=== PATIENT | female | born 1980 | race Caucasian/White ===

== ENCOUNTER 2018-12-17 17:10 | Observation (INO) | payer MEDICAID ==
[2018-12-17] MEDS ORDERED: Sodium Chloride 0.9% 10 ML Syringe FLUSH PRN (17:26)
[2018-12-17] MEDS ORDERED: Sodium Chloride 0.9% 1,000 ML IV ONE (17:28)
[2018-12-17] MEDS ORDERED: Ondansetron 4 MG/2 ML SDV IVPUSH ONE (17:28)
--- NOTE | 2018-12-17 18:24 | EDM.PDOC ---
ED HPI GENERAL MEDICAL PROBLEM - General Chief Complaint: Gastrointestinal Problem Stated Complaint: high temp Time Seen by Provider: 12/17/18 17:42 Source of Information: Reports: Patient History Limitations: Reports: No Limitations - History of Present Illness INITIAL COMMENTS - FREE TEXT/NARRATIVE: Pt. presents to ER with complaints of diarrhea, vomiting, and chills that started this AM. Pt. states that she has had numerous episodes of diarrhea and vomiting today. She states that she feels quite weak. Pt. has a history of long QT and has previously had a cardiac arrest in the past. She states that she has an AICD. She denies any palpitations or chest pain. She denies any abdominal pain. No dysuria. No skin rashes. Onset: Today Onset Date: 12/17/18 Location: Reports: Generalized Associated Symptoms: Reports: Nausea/Vomiting, Other (diarrhea) - Related Data Allergies Allergy/AdvReac Type Severity Reaction Status Date / Time amoxicillin Allergy Rash Verified 12/17/18 18:42 ED ROS GENERAL - Review of Systems Review Of Systems: See Below Constitutional: Reports: No Symptoms HEENT: Reports: No Symptoms Respiratory: Reports: No Symptoms Cardiovascular: Reports: No Symptoms Endocrine: Reports: No Symptoms GI/Abdominal: Reports: Diarrhea, Vomiting : Reports: No Symptoms Musculoskeletal: Reports: No Symptoms Skin: Reports: No Symptoms Neurological: Reports: No Symptoms Psychiatric: Reports: No Symptoms Hematologic/Lymphatic: Reports: No Symptoms Immunologic: Reports: No Symptoms ED EXAM, GENERAL - Physical Exam Exam: See Below Exam Limited By: No Limitations General Appearance: Alert, WD/WN, No Apparent Distress Eye Exam: Bilateral Eye: EOMI, PERRL Throat/Mouth: Normal Inspection, Normal Lips, Normal Teeth, Normal Gums, Normal Oropharynx, Normal Voice, No Airway Compromise Head: Atraumatic, Normocephalic Neck: Normal Inspection, Supple, Non-Tender, Full Range of Motion Respiratory/Chest: No Respiratory Distress, Lungs Clear, Normal Breath Sounds, No Accessory Muscle Use, Chest Non-Tender Cardiovascular: Normal Peripheral Pulses, Regular Rate, Rhythm, No Edema, No Gallop, No JVD, No Murmur, No Rub GI/Abdominal: Normal Bowel Sounds, Soft, No Organomegaly, No Distention, No Mass , Tender (diffusely tender) (Female) Exam: Deferred Rectal (Female) Exam: Deferred Back Exam: Normal Inspection, Full Range of Motion Extremities: Normal Inspection, Normal Range of Motion, Non-Tender, No Pedal Edema, Normal Capillary Refill Neurological: Alert, Oriented, CN II-XII Intact, Normal Cognition, Normal Gait, Normal Reflexes, No Motor/Sensory Deficits Psychiatric: Normal Affect, Normal Mood Skin Exam: Warm, Dry, Intact, Normal Color, No Rash Lymphatic: No Adenopathy Course - Vital Signs Last Recorded V/S: Last Vital Signs Temp 39.1 C H 12/17/18 17:42 Pulse 99 12/17/18 17:42 Resp 24 H 12/17/18 17:42 BP 128/60 12/17/18 17:42 Pulse Ox 93 L 12/17/18 17:42 - Orders/Labs/Meds Orders: Active Orders 24 hr Category Date Time Status CULTURE BLOOD [BC] Stat Lab 12/17/18 17:51 Received CULTURE BLOOD [BC] Stat Lab 12/17/18 17:57 Received Sodium Chloride 0.9% [Saline Flush] Med 12/17/18 17:26 Active 10 ml FLUSH ASDIRECTED PRN Blood Culture x2 Reflex Set [OM.PC] Stat Oth 12/17/18 17:26 Ordered Peripheral IV Insertion Adult [OM.PC] Routine Oth 12/17/18 17:26 Ordered Medication Orders Sodium Chloride (Saline Flush) 10 ml FLUSH ASDIRECTED PRN PRN Reason: Keep Vein Open Labs: Laboratory Tests 12/17/18 12/17/18 12/17/18 Range/Units 17:27 17:51 17:51 WBC 8.4 (4.0-10.0) x10^3/uL RBC 3.88 L (4.00-5.50) x10^6/uL Hgb 11.1 L (12.0-16.0) g/dL Hct 34.1 (33.0-47.0) % MCV 87.9 (78.0-93.0) fL MCH 28.6 (26.0-32.0) pg MCHC 32.6 (32.0-36.0) g/dL RDW Coeff of Jo Ann 13.2 (10.0-15.0) % Plt Count 208 (130-400) x10^3/uL Add Manual Diff Yes Neutrophils % (Manual) 72 (50-80) % Band Neutrophils % 10 H (0-6) % Lymphocytes % (Manual) 12 L (25-50) % Monocytes % (Manual) 4 (2-11) % Metamyelocytes % 2 H (0) % Vacuolated Monocytes Rare Toxic Granulation Rare Platelet Estimate Adequate PT 10.9 (10.0-12.8) SEC INR 1.0 L (2.0-3.5) Sodium (136-145) mmol/L Potassium (3.5-5.1) mmol/L Chloride (98-107) mmol/L Carbon Dioxide (21-32) mmol/L Anion Gap (10-20) mmol/L BUN (7-18) mg/dL Creatinine (0.55-1.02) mg/dL Est Cr Clr Drug Dosing Estimated GFR (MDRD) Glucose (74-106) mg/dL Lactic Acid (0.4-2.0) mmol/L Calcium (8.5-10.1) mg/dL Corrected Calcium (8.5-10.1) mg/dL Phosphorus (2.6-4.7) mg/dL Magnesium (1.8-2.4) mg/dL Total Bilirubin (0.2-1.0) mg/dL AST (15-37) U/L ALT (14-59) U/L Alkaline Phosphatase (46-116) U/L C-Reactive Protein (<=0.9) mg/dL Total Protein (6.4-8.2) g/dL Albumin (3.4-5.0) g/dL Globulin Albumin/Globulin Ratio TSH, Ultra Sensitive (0.358-3.74) uIU/mL Urine Color Yellow (YELLOW) Urine Appearance Cloudy H (CLEAR) Urine pH 7.0 (5.0-8.0) Ur Specific Sinclair 1.025 Urine Protein >=300 H (NEGATIVE) mg/dL Urine Glucose (UA) Negative (NEGATIVE) mg/dL Urine Ketones Negative (NEGATIVE) mg/dL Urine Occult Blood Small H (NEGATIVE) Urine Nitrite Negative (NEGATIVE) Urine Bilirubin Small H (NEGATIVE) Urine Urobilinogen 0.2 (0.2) EU/dL Ur Leukocyte Esterase Negative (NEGATIVE) 12/17/18 12/17/18 Range/Units 17:51 17:51 WBC (4.0-10.0) x10^3/uL RBC (4.00-5.50) x10^6/uL Hgb (12.0-16.0) g/dL Hct (33.0-47.0) % MCV (78.0-93.0) fL MCH (26.0-32.0) pg MCHC (32.0-36.0) g/dL RDW Coeff of Jo Ann (10.0-15.0) % Plt Count (130-400) x10^3/uL Add Manual Diff Neutrophils % (Manual) (50-80) % Band Neutrophils % (0-6) % Lymphocytes % (Manual) (25-50) % Monocytes % (Manual) (2-11) % Metamyelocytes % (0) % Vacuolated Monocytes Toxic Granulation Platelet Estimate PT (10.0-12.8) SEC INR (2.0-3.5) Sodium 140 (136-145) mmol/L Potassium 3.2 L (3.5-5.1) mmol/L Chloride 102 (98-107) mmol/L Carbon Dioxide 25 (21-32) mmol/L Anion Gap 16.2 (10-20) mmol/L BUN 12 (7-18) mg/dL Creatinine 0.9 (0.55-1.02) mg/dL Est Cr Clr Drug Dosing TNP Estimated GFR (MDRD) > 60 Glucose 138 H (74-106) mg/dL Lactic Acid 2.7 H* (0.4-2.0) mmol/L Calcium 9.0 (8.5-10.1) mg/dL Corrected Calcium 9.24 (8.5-10.1) mg/dL Phosphorus 1.6 L (2.6-4.7) mg/dL Magnesium 1.2 L (1.8-2.4) mg/dL Total Bilirubin 0.9 (0.2-1.0) mg/dL AST 19 (15-37) U/L ALT 26 (14-59) U/L Alkaline Phosphatase 74 (46-116) U/L C-Reactive Protein 10.9 H (<=0.9) mg/dL Total Protein 8.1 (6.4-8.2) g/dL Albumin 3.7 (3.4-5.0) g/dL Globulin 4.4 Albumin/Globulin Ratio 0.84 TSH, Ultra Sensitive 1.407 (0.358-3.74) uIU/mL Urine Color (YELLOW) Urine Appearance (CLEAR) Urine pH (5.0-8.0) Ur Specific Sinclair Urine Protein (NEGATIVE) mg/dL Urine Glucose (UA) (NEGATIVE) mg/dL Urine Ketones (NEGATIVE) mg/dL Urine Occult Blood (NEGATIVE) Urine Nitrite (NEGATIVE) Urine Bilirubin (NEGATIVE) Urine Urobilinogen (0.2) EU/dL Ur Leukocyte Esterase (NEGATIVE) Meds: Medications Generic Name Dose Route Start Last Admin Trade Name Freq PRN Reason Stop Dose Admin Sodium Chloride 10 ml 12/17/18 17:26 Saline Flush FLUSH ASDIRECTED PRN Keep Vein Open Discontinued Medications Generic Name Dose Route Start Last Admin Trade Name Freq PRN Reason Stop Dose Admin Sodium Chloride 1,000 mls @ 1,000 mls/hr 12/17/18 17:28 12/17/18 17:40 Normal Saline IV 12/17/18 18:27 1,000 mls/hr .BOLUS ONE Administration Ondansetron HCl 4 mg 12/17/18 17:28 12/17/18 17:40 Zofran IVPUSH 12/17/18 17:29 4 mg ONETIME ONE Administration - Re-Assessments/Exams Free Text/Narrative Re-Assessment/Exam: Pt. was given a liter of normal saline, zofran 4 mg IV. Departure - Departure Time of Disposition: 19:21 Disposition: Refer to Observation Clinical Impression: Vomiting, Diarrhea, Lactic acidosis, Dehydration - Discharge Information - My Orders Last 24 Hours: My Active Orders 12/17/18 17:26 Sodium Chloride 0.9% [Saline Flush] 10 ml FLUSH ASDIRECTED PRN Blood Culture x2 Reflex Set [OM.PC] Stat Peripheral IV Insertion Adult [OM.PC] Routine 12/17/18 17:51 CULTURE BLOOD [BC] Stat 12/17/18 17:57 CULTURE BLOOD [BC] Stat - Assessment/Plan Last 24 Hours: My Active Orders 12/17/18 17:26 Sodium Chloride 0.9% [Saline Flush] 10 ml FLUSH ASDIRECTED PRN Blood Culture x2 Reflex Set [OM.PC] Stat Peripheral IV Insertion Adult [OM.PC] Routine 12/17/18 17:51 CULTURE BLOOD [BC] Stat 12/17/18 17:57 CULTURE BLOOD [BC] Stat
[2018-12-17 18:32] LABS: CHLORIDE,CL 102 mmol/L (98-107); SODIUM,NA 140 mmol/L (136-145)
[2018-12-17 18:33] LABS: ANION GAP 16.2 mmol/L (10-20)
[2018-12-17] MEDS ORDERED: Ondansetron 4 MG/2 ML SDV IVPUSH PRN (19:29)
[2018-12-17] MEDS: NS + KCl 20mEq/L 1,000 ML IV SCH (20:56)
[2018-12-18] MEDS ORDERED: Acetaminophen 500 MG Tab PO PRN (02:43)
[2018-12-18] MEDS: NS + KCl 20mEq/L 1,000 ML IV SCH (04:21)
[2018-12-18 08:01] LABS: CHLORIDE,CL 106 mmol/L (98-107); SODIUM,NA 141 mmol/L (136-145)
[2018-12-18 08:05] LABS: ANION GAP 13.8 mmol/L (10-20)
[2018-12-18] MEDS ORDERED: cefTRIAXone 1 GM Vial IVPUSH ONE (09:14)
--- NOTE | 2018-12-18 10:44 | PCM.PN ---
- General Info Date of Service: 12/18/18 Admission Dx/Problem (Free Text): 1. fever 2. nausea/vomiting 3. Lactic acidosis Subjective Update: Day 1: Pt. presents to ER with complaints of diarrhea, vomiting, and chills that started this AM. Pt. states that she has had numerous episodes of diarrhea and vomiting today. She states that she feels quite weak. Labs and urine were completed. Lactic acid was elevated. Patient was admitted observation for further monitoring of lactic acid and fever. Day 2: Pt continued to have low grade fever throughout the night with relief of aleve. Pt remained NPO though the night and she states she is finally getting her appetite back. Labs completed this am show trending back to patients baseline. Blood cultures however were called with gram neg rods. With this finding and continued low grade fever. CT scan was ordered or rule out abdominal infection, abscess, or other acute abdominal etiologies. Pt will remain NPO and monitoring fevers until the scan is complete. Functional Status: Reports: Pain Controlled, Ambulating - Review of Systems General: Reports: Fever, Weakness, Fatigue, Malaise HEENT: Reports: No Symptoms Pulmonary: Reports: No Symptoms Cardiovascular: Reports: No Symptoms Gastrointestinal: Reports: No Symptoms Genitourinary: Reports: No Symptoms Musculoskeletal: Reports: No Symptoms Skin: Reports: No Symptoms Neurological: Reports: No Symptoms Psychiatric: Reports: No Symptoms - Patient Data Vitals - Most Recent: Last Vital Signs Temp 37.3 C 12/18/18 06:00 Pulse 81 12/18/18 06:00 Resp 16 12/18/18 06:00 BP 106/48 L 12/18/18 06:00 Pulse Ox 97 12/18/18 06:00 Weight - Most Recent: 100.698 kg I&O - Last 24 Hours: Intake & Output 12/17/18 12/18/18 12/18/18 22:59 06:59 14:59 Intake Total 929 Output Total 300 Balance 629 Lab Results Last 24 Hours: Laboratory Results - last 24 hr 12/17/18 12/17/18 12/17/18 Range/Units 17:27 17:51 17:51 WBC 8.4 (4.0-10.0) x10^3/uL RBC 3.88 L (4.00-5.50) x10^6/uL Hgb 11.1 L (12.0-16.0) g/dL Hct 34.1 (33.0-47.0) % MCV 87.9 (78.0-93.0) fL MCH 28.6 (26.0-32.0) pg MCHC 32.6 (32.0-36.0) g/dL RDW Coeff of Jo Ann 13.2 (10.0-15.0) % Plt Count 208 (130-400) x10^3/uL Neut % (Auto) (50.0-80.0) % Lymph % (Auto) (25.0-50.0) % Randolph % (Auto) (2.0-11.0) % Eos % (Auto) (0.0-4.0) % Baso % (Auto) (0.2-1.2) % Add Manual Diff Yes Neutrophils % (Manual) 72 (50-80) % Band Neutrophils % 10 H (0-6) % Lymphocytes % (Manual) 12 L (25-50) % Monocytes % (Manual) 4 (2-11) % Metamyelocytes % 2 H (0) % Vacuolated Monocytes Rare Toxic Granulation Rare Platelet Estimate Adequate PT 10.9 (10.0-12.8) SEC INR 1.0 L (2.0-3.5) Sodium (136-145) mmol/L Potassium (3.5-5.1) mmol/L Chloride (98-107) mmol/L Carbon Dioxide (21-32) mmol/L Anion Gap (10-20) mmol/L BUN (7-18) mg/dL Creatinine (0.55-1.02) mg/dL Est Cr Clr Drug Dosing Estimated GFR (MDRD) Glucose (74-106) mg/dL Lactic Acid (0.4-2.0) mmol/L Calcium (8.5-10.1) mg/dL Corrected Calcium (8.5-10.1) mg/dL Phosphorus (2.6-4.7) mg/dL Magnesium (1.8-2.4) mg/dL Total Bilirubin (0.2-1.0) mg/dL AST (15-37) U/L ALT (14-59) U/L Alkaline Phosphatase (46-116) U/L C-Reactive Protein (<=0.9) mg/dL Total Protein (6.4-8.2) g/dL Albumin (3.4-5.0) g/dL Globulin Albumin/Globulin Ratio TSH, Ultra Sensitive (0.358-3.74) uIU/mL Urine Color Yellow (YELLOW) Urine Appearance Cloudy H (CLEAR) Urine pH 7.0 (5.0-8.0) Ur Specific Beaman 1.025 Urine Protein >=300 H (NEGATIVE) mg/dL Urine Glucose (UA) Negative (NEGATIVE) mg/dL Urine Ketones Negative (NEGATIVE) mg/dL Urine Occult Blood Small H (NEGATIVE) Urine Nitrite Negative (NEGATIVE) Urine Bilirubin Small H (NEGATIVE) Urine Urobilinogen 0.2 (0.2) EU/dL Ur Leukocyte Esterase Negative (NEGATIVE) 12/17/18 12/17/18 12/17/18 Range/Units 17:51 17:51 23:46 WBC (4.0-10.0) x10^3/uL RBC (4.00-5.50) x10^6/uL Hgb (12.0-16.0) g/dL Hct (33.0-47.0) % MCV (78.0-93.0) fL MCH (26.0-32.0) pg MCHC (32.0-36.0) g/dL RDW Coeff of Jo Ann (10.0-15.0) % Plt Count (130-400) x10^3/uL Neut % (Auto) (50.0-80.0) % Lymph % (Auto) (25.0-50.0) % Randolph % (Auto) (2.0-11.0) % Eos % (Auto) (0.0-4.0) % Baso % (Auto) (0.2-1.2) % Add Manual Diff Neutrophils % (Manual) (50-80) % Band Neutrophils % (0-6) % Lymphocytes % (Manual) (25-50) % Monocytes % (Manual) (2-11) % Metamyelocytes % (0) % Vacuolated Monocytes Toxic Granulation Platelet Estimate PT (10.0-12.8) SEC INR (2.0-3.5) Sodium 140 (136-145) mmol/L Potassium 3.2 L (3.5-5.1) mmol/L Chloride 102 (98-107) mmol/L Carbon Dioxide 25 (21-32) mmol/L Anion Gap 16.2 (10-20) mmol/L BUN 12 (7-18) mg/dL Creatinine 0.9 (0.55-1.02) mg/dL Est Cr Clr Drug Dosing TNP Estimated GFR (MDRD) > 60 Glucose 138 H (74-106) mg/dL Lactic Acid 2.7 H* 1.2 (0.4-2.0) mmol/L Calcium 9.0 (8.5-10.1) mg/dL Corrected Calcium 9.24 (8.5-10.1) mg/dL Phosphorus 1.6 L (2.6-4.7) mg/dL Magnesium 1.2 L (1.8-2.4) mg/dL Total Bilirubin 0.9 (0.2-1.0) mg/dL AST 19 (15-37) U/L ALT 26 (14-59) U/L Alkaline Phosphatase 74 (46-116) U/L C-Reactive Protein 10.9 H (<=0.9) mg/dL Total Protein 8.1 (6.4-8.2) g/dL Albumin 3.7 (3.4-5.0) g/dL Globulin 4.4 Albumin/Globulin Ratio 0.84 TSH, Ultra Sensitive 1.407 (0.358-3.74) uIU/mL Urine Color (YELLOW) Urine Appearance (CLEAR) Urine pH (5.0-8.0) Ur Specific Beaman Urine Protein (NEGATIVE) mg/dL Urine Glucose (UA) (NEGATIVE) mg/dL Urine Ketones (NEGATIVE) mg/dL Urine Occult Blood (NEGATIVE) Urine Nitrite (NEGATIVE) Urine Bilirubin (NEGATIVE) Urine Urobilinogen (0.2) EU/dL Ur Leukocyte Esterase (NEGATIVE) 12/18/18 12/18/18 Range/Units 07:20 07:20 WBC 7.7 (4.0-10.0) x10^3/uL RBC 3.65 L (4.00-5.50) x10^6/uL Hgb 10.4 L (12.0-16.0) g/dL Hct 33.1 (33.0-47.0) % MCV 90.7 (78.0-93.0) fL MCH 28.5 (26.0-32.0) pg MCHC 31.4 L (32.0-36.0) g/dL RDW Coeff of Jo Ann 14.0 (10.0-15.0) % Plt Count 169 (130-400) x10^3/uL Neut % (Auto) 92.7 H (50.0-80.0) % Lymph % (Auto) 3.9 L (25.0-50.0) % Randolph % (Auto) 3.4 (2.0-11.0) % Eos % (Auto) 0.0 (0.0-4.0) % Baso % (Auto) 0.0 L (0.2-1.2) % Add Manual Diff Neutrophils % (Manual) (50-80) % Band Neutrophils % (0-6) % Lymphocytes % (Manual) (25-50) % Monocytes % (Manual) (2-11) % Metamyelocytes % (0) % Vacuolated Monocytes Toxic Granulation Platelet Estimate PT (10.0-12.8) SEC INR (2.0-3.5) Sodium 141 (136-145) mmol/L Potassium 3.8 (3.5-5.1) mmol/L Chloride 106 (98-107) mmol/L Carbon Dioxide 25 (21-32) mmol/L Anion Gap 13.8 (10-20) mmol/L BUN 9 (7-18) mg/dL Creatinine 0.8 (0.55-1.02) mg/dL Est Cr Clr Drug Dosing 96.18 Estimated GFR (MDRD) > 60 Glucose 123 H (74-106) mg/dL Lactic Acid (0.4-2.0) mmol/L Calcium 7.9 L (8.5-10.1) mg/dL Corrected Calcium (8.5-10.1) mg/dL Phosphorus (2.6-4.7) mg/dL Magnesium (1.8-2.4) mg/dL Total Bilirubin (0.2-1.0) mg/dL AST (15-37) U/L ALT (14-59) U/L Alkaline Phosphatase (46-116) U/L C-Reactive Protein (<=0.9) mg/dL Total Protein (6.4-8.2) g/dL Albumin (3.4-5.0) g/dL Globulin Albumin/Globulin Ratio TSH, Ultra Sensitive (0.358-3.74) uIU/mL Urine Color (YELLOW) Urine Appearance (CLEAR) Urine pH (5.0-8.0) Ur Specific Beaman Urine Protein (NEGATIVE) mg/dL Urine Glucose (UA) (NEGATIVE) mg/dL Urine Ketones (NEGATIVE) mg/dL Urine Occult Blood (NEGATIVE) Urine Nitrite (NEGATIVE) Urine Bilirubin (NEGATIVE) Urine Urobilinogen (0.2) EU/dL Ur Leukocyte Esterase (NEGATIVE) Bernabe Results Last 24 Hours: Microbiology 12/17/18 17:51 Aerobic Blood Culture - Preliminary Blood - Venous Gram Negative Rods Anaerobic Blood Culture - Preliminary Gram Negative Rods 12/17/18 17:57 Anaerobic Blood Culture - Preliminary Blood - Venous - Lab Draw Gram Negative Rods Med Orders - Current: Current Medications Diatrizoate Meglum/Diatrizoate Sod (Gastrografin 37%) 10 ml PO Q30M SAMMY Stop: 12/18/18 11:16 Potassium Chloride/Sodium Chloride (Normal Saline With 20 Meq Kcl) 1,000 mls @ 125 mls/hr IV ASDIRECTED SAMMY Last Admin: 12/18/18 04:21 Dose: 125 mls/hr Naproxen (Naproxen Sodium) 220 mg PO Q12HR PRN PRN Reason: Fever Last Admin: 12/18/18 03:51 Dose: 220 mg Ondansetron HCl (Zofran) 4 mg IVPUSH Q6H PRN PRN Reason: Nausea Last Admin: 12/18/18 01:22 Dose: 4 mg Sodium Chloride (Saline Flush) 10 ml FLUSH ASDIRECTED PRN PRN Reason: Keep Vein Open Discontinued Medications Ceftriaxone Sodium (Rocephin) 2 gm IVPUSH ONETIME ONE Stop: 12/18/18 09:15 Sodium Chloride (Normal Saline) 1,000 mls @ 1,000 mls/hr IV .BOLUS ONE Stop: 12/17/18 18:27 Last Admin: 12/17/18 17:40 Dose: 1,000 mls/hr Ondansetron HCl (Zofran) 4 mg IVPUSH ONETIME ONE Stop: 12/17/18 17:29 Last Admin: 12/17/18 17:40 Dose: 4 mg - Exam General: Alert, Oriented, Cooperative HEENT: Pupils Equal, Pupils Reactive, EOMI, Mucous Membr. Moist/[place] Neck: Supple Lungs: Clear to Auscultation, Normal Respiratory Effort Cardiovascular: Regular Rate, Regular Rhythm GI/Abdominal Exam: Normal Bowel Sounds, Soft, Non-Tender Back Exam: CVA Tenderness (R) (started hurting only during palpation. had not noted before ) Extremities: Normal Inspection, Normal Range of Motion, Non-Tender, No Pedal Edema Neurological: No New Focal Deficit Psy/Mental Status: Alert, Normal Affect, Normal Mood - Problem List & Annotations (1) Positive blood cultures SNOMED Code(s): 118276508 Code(s): R78.81 - BACTEREMIA Status: Acute Current Visit: Yes (2) Diarrhea SNOMED Code(s): 58266668 Code(s): R19.7 - DIARRHEA, UNSPECIFIED Status: Acute Current Visit: Yes (3) Lactic acidosis SNOMED Code(s): 39657200 Code(s): E87.2 - ACIDOSIS Status: Acute Current Visit: Yes - Problem List Review Problem List Initiated/Reviewed/Updated: Yes - My Orders Last 24 Hours: My Active Orders 12/18/18 02:47 Naproxen Sodium 220 mg PO Q12HR PRN 12/18/18 09:15 Dietary Supplements [RC] BIDMEALS 12/18/18 09:23 Abdomen Pelvis w wo Cont [CT] Routine 12/18/18 10:15 Diatrizoate Kiara/Diatrizoate Na [Gastrografin 37%] 10 ml PO Q30M - Assessment Assessment:: 1. fever 2. Nausea/vomiting 3. Lactic acidosis 4. Positive blood cultures - Plan Plan:: 1. fever - continue to provide Aleve. Pt is unable to take ibuprofen (Long QT history and cardiac arrest) and limited tylenol use. - Labs continue to monitor for signs of infection - Rocephin 2gm IV given this am for continued elevated temperature and positive blood cultures - Fluids continue to run maintenance 2. Nausea/vomiting - Zofran ordered to continue to help with the symptoms 3. Lactic acidosis - Labs show improvement over the night - IV fluids running - Antibiotics given this am to suspicion of infection 4. Positive blood cultures - Gram neg rods called via lab this am. - IV antibiotics given initially after report from lab. Further antibiotic use will be evaluated upon conclusion of CT scan. - CT scan ordered for further investigation of etiology - Pt did admit to pain on the right lower flank region on palpation during exam. Negative of abdominal findings. - Pt will remain NPO for now until CT scan reading - Labs will be ordered for the am - IV fluids will remain Pt was hoping to go home today. She had an uneventful night but still was having low grade temperatures. Her urine does show some contamination but not enough for an active infection. Lab called shortly after visiting with the patient stating 3 tubes concluding gram - rods. With unknown etiology and continued low grade fevers, CT scan is ordered to rule out abscess or other acute abdominal etiologies. Pt will remian NPO for now. Nausea medication are ordered. Re-evaluation of the patient after CT scan is completed. DVT prophlaxis is in place- pt is able to ambulate without difficulty on her own, and code level 1.
[2018-12-18] MEDS: Diatrizoate Meglumine/Diatrizoate Sodium 37% 30 ML Bottle PO SCH ×3 (10:54→12:06)
[2018-12-18] MEDS ORDERED: Iopamidol 612 MG/ML 100 ML Bottle IVPUSH ONE (11:30)
[2018-12-18] MEDS ORDERED: Sodium Chloride 0.9% 1,000 ML IV SCH (12:45)
--- NOTE | 2018-12-18 13:55 | CT ---
[id number] CT/CT Abdomen Pelvis WWO IV Exam: CT Abdomen Pelvis WWO IV Clinical Data: RIGHT FLANK PAIN. POSITIVE BLOOD CULTURES COMPARISON: NO PREVIOUS SIMILAR EXAM IS AVAILABLE FINDINGS: The exam is not normal. There are multiple abnormalities. #1. The right kidney is slightly prominent with no hydronephrosis. The parenchymal opacification of the right kidney is equal to the left kidney. Slight prominence of the right kidney raises question of right-sided pyelonephritis. #2. There are multiple surgical changes. #3. There is a thick-walled cystic mass in the tail of the pancreas. This measures 4.5 cm in diameter. The differential diagnosis of this finding includes pseudocyst, cystadenoma, and cystadenocarcinoma. Follow-up is needed. #4. There is an abnormal appearance of the proximal jejunum best seen on image 82, series 6. This raises the question of an intramural small bowel tumor or hemorrhage versus intussusception. There is however no proximal small bowel dilatation to suggest intussusception. Correlation with the surgical history would be helpful. #5. There is a defect of the anterior abdominal wall containing mesenteric fat, likely related to previous surgery #6. There is a 4.5 cm fat-containing left adnexal mass likely a dermoid. #7. The spleen is moderately prominent. The uterus is slightly prominent likely physiologic. The gallbladder has been removed. The appendix is not seen. There is no evidence of appendicitis. The liver, aorta, and adrenals are unremarkable. There are no radiopaque calculi of either kidney or ureter seen. IMPRESSION: MULTIPLE ABNORMALITIES. ABNORMAL APPEARANCE OF PROXIMAL SMALL BOWEL. ABNORMAL FINDING IN TAIL OF PANCREAS. PROMINENCE OF RIGHT KIDNEY RAISING QUESTION OF PYELONEPHRITIS. NO HYDRONEPHROSIS. PROBABLE DERMOID LEFT ADNEXAL REGION. CORRELATION WITH SURGICAL HISTORY, FOLLOW-UP STUDIES, AND CORRELATION WITH PREVIOUS STUDIES NEEDED. Foreign Funez MD 12/18/18 1377 Thank you for allowing us to participate in the care of your patient.
--- NOTE | 2018-12-18 15:06 | PCM.DCSUM1 ---
Discharge Summary - Hospital Course Diagnosis: Stroke: No - Discharge Data Discharge Date: 12/18/18 Discharge Disposition: DC/Tfer to Acute Hospital 02 Condition: Good - Discharge Diagnosis/Problem(s) (1) Positive blood cultures SNOMED Code(s): 053169449 ICD Code: R78.81 - BACTEREMIA Status: Acute Current Visit: Yes (2) Diarrhea SNOMED Code(s): 96519093 ICD Code: R19.7 - DIARRHEA, UNSPECIFIED Status: Acute Current Visit: Yes (3) Lactic acidosis SNOMED Code(s): 28584428 ICD Code: E87.2 - ACIDOSIS Status: Acute Current Visit: Yes - Discharge Plan *PRESCRIPTION DRUG MONITORING PROGRAM REVIEWED*: Not Applicable *COPY OF PRESCRIPTION DRUG MONITORING REPORT IN PATIENT ANAHI: Not Applicable Home Medications: Home Meds Magnesium Chloride [Mag-64] 128 mg PO BID 12/17/18 [History] Metoprolol Tartrate [Lopressor] 50 mg PO BID 12/17/18 [History] Nitrofurantoin Monohyd/M-Cryst [Macrobid 100 mg Capsule] 100 mg PO ASDIRECTED PRN 12/17/18 [History] Spironolactone [Aldactone] 50 mg PO DAILY 12/17/18 [History] valACYclovir [Valtrex] 1,000 mg PO DAILY 12/17/18 [History] Naproxen Sodium 220 mg PO Q12H PRN 12/18/18 [History] Forms: Interfacility Transfer EMTALA Referrals: Min June MD [Primary Care Provider] - - Discharge Summary/Plan Comment DC Time >30 min.: Yes (consultation with [facility] hospitalist, surgeon, and PCP ) - General Info Date of Service: 12/18/18 Admission Dx/Problem (Free Text: 1. fever-pyelonephritis 2. nausea/vomiting 3. Lactic acidosis 4. Abnormal CT scan Subjective Update: Day 1: Pt. presents to ER with complaints of diarrhea, vomiting, and chills that started this AM. Pt. states that she has had numerous episodes of diarrhea and vomiting today. She states that she feels quite weak. Labs and urine were completed. Lactic acid was elevated. Patient was admitted observation for further monitoring of lactic acid and fever. Day 2: Pt continued to have low grade fever throughout the night with relief of aleve. Pt remained NPO though the night and she states she is finally getting her appetite back. Labs completed this am show trending back to patients baseline. Blood cultures however were called with gram neg rods. With this finding and continued low grade fever. CT scan was ordered or rule out abdominal infection, abscess, or other acute abdominal etiologies. Pt will remain NPO and monitoring fevers until the scan is complete. Rocephin 2 gm IV given prior to scan. CT completed at 12:00 results reveal abnormal appearance of the proximal small bowel, abnormal finding in the tail of the pancreas, and pyelonephritis of the right kidney. 1. Consultation completed with [facility] surgeon and hospitalist. They recommend transfer for further investigation of the abnormalities and medical management of the pyelonephritis. Patient will be transferred via ambulance for further medical management. All questions and concerns were addressed prior to discharge. Functional Status: Reports: Pain Controlled, Ambulating - Review of Systems General: Reports: Fever, Weakness, Fatigue, Malaise HEENT: Reports: No Symptoms Pulmonary: Reports: No Symptoms Cardiovascular: Reports: No Symptoms Gastrointestinal: Reports: No Symptoms Genitourinary: Reports: Flank Pain (right side) Musculoskeletal: Reports: No Symptoms Skin: Reports: No Symptoms Neurological: Reports: No Symptoms Psychiatric: Reports: No Symptoms - Patient Data Vitals - Most Recent: Last Vital Signs Temp 37.8 C 12/18/18 14:00 Pulse 94 12/18/18 14:00 Resp 16 12/18/18 14:00 BP 130/65 12/18/18 14:00 Pulse Ox 95 12/18/18 14:00 Weight - Most Recent: 100.698 kg I&O - Last 24 hours: Intake & Output 12/18/18 12/18/18 12/18/18 06:59 14:59 22:59 Intake Total 929 Output Total 300 450 Balance 629 -450 Imaging Impressions - Last 24 hrs: CT scan: multiple abnormalities found. Abnormal appearance of the proximal small bowel. Abnormal finding in tall of pancreas. Prominence of right kidney raising question of pyelonephritis. No hydronephrosis. Probable dermoid left adnexal region. Lab Results - Last 24 hrs: Laboratory Results - last 24 hr 12/17/18 12/17/18 12/17/18 Range/Units 17:27 17:51 17:51 WBC 8.4 (4.0-10.0) x10^3/uL RBC 3.88 L (4.00-5.50) x10^6/uL Hgb 11.1 L (12.0-16.0) g/dL Hct 34.1 (33.0-47.0) % MCV 87.9 (78.0-93.0) fL MCH 28.6 (26.0-32.0) pg MCHC 32.6 (32.0-36.0) g/dL RDW Coeff of Jo Ann 13.2 (10.0-15.0) % Plt Count 208 (130-400) x10^3/uL Neut % (Auto) (50.0-80.0) % Lymph % (Auto) (25.0-50.0) % [place]cho % (Auto) (2.0-11.0) % Eos % (Auto) (0.0-4.0) % Baso % (Auto) (0.2-1.2) % Add Manual Diff Yes Neutrophils % (Manual) 72 (50-80) % Band Neutrophils % 10 H (0-6) % Lymphocytes % (Manual) 12 L (25-50) % Monocytes % (Manual) 4 (2-11) % Metamyelocytes % 2 H (0) % Vacuolated Monocytes Rare Toxic Granulation Rare Platelet Estimate Adequate PT 10.9 (10.0-12.8) SEC INR 1.0 L (2.0-3.5) Sodium (136-145) mmol/L Potassium (3.5-5.1) mmol/L Chloride (98-107) mmol/L Carbon Dioxide (21-32) mmol/L Anion Gap (10-20) mmol/L BUN (7-18) mg/dL Creatinine (0.55-1.02) mg/dL Est Cr Clr Drug Dosing Estimated GFR (MDRD) Glucose (74-106) mg/dL Lactic Acid (0.4-2.0) mmol/L Calcium (8.5-10.1) mg/dL Corrected Calcium (8.5-10.1) mg/dL Phosphorus (2.6-4.7) mg/dL Magnesium (1.8-2.4) mg/dL Total Bilirubin (0.2-1.0) mg/dL AST (15-37) U/L ALT (14-59) U/L Alkaline Phosphatase (46-116) U/L C-Reactive Protein (<=0.9) mg/dL Total Protein (6.4-8.2) g/dL Albumin (3.4-5.0) g/dL Globulin Albumin/Globulin Ratio TSH, Ultra Sensitive (0.358-3.74) uIU/mL Urine Color Yellow (YELLOW) Urine Appearance Cloudy H (CLEAR) Urine pH 7.0 (5.0-8.0) Ur Specific Hadley 1.025 Urine Protein >=300 H (NEGATIVE) mg/dL Urine Glucose (UA) Negative (NEGATIVE) mg/dL Urine Ketones Negative (NEGATIVE) mg/dL Urine Occult Blood Small H (NEGATIVE) Urine Nitrite Negative (NEGATIVE) Urine Bilirubin Small H (NEGATIVE) Urine Urobilinogen 0.2 (0.2) EU/dL Ur Leukocyte Esterase Negative (NEGATIVE) 12/17/18 12/17/18 12/17/18 Range/Units 17:51 17:51 23:46 WBC (4.0-10.0) x10^3/uL RBC (4.00-5.50) x10^6/uL Hgb (12.0-16.0) g/dL Hct (33.0-47.0) % MCV (78.0-93.0) fL MCH (26.0-32.0) pg MCHC (32.0-36.0) g/dL RDW Coeff of Jo Ann (10.0-15.0) % Plt Count (130-400) x10^3/uL Neut % (Auto) (50.0-80.0) % Lymph % (Auto) (25.0-50.0) % Concho % (Auto) (2.0-11.0) % Eos % (Auto) (0.0-4.0) % Baso % (Auto) (0.2-1.2) % Add Manual Diff Neutrophils % (Manual) (50-80) % Band Neutrophils % (0-6) % Lymphocytes % (Manual) (25-50) % Monocytes % (Manual) (2-11) % Metamyelocytes % (0) % Vacuolated Monocytes Toxic Granulation Platelet Estimate PT (10.0-12.8) SEC INR (2.0-3.5) Sodium 140 (136-145) mmol/L Potassium 3.2 L (3.5-5.1) mmol/L Chloride 102 (98-107) mmol/L Carbon Dioxide 25 (21-32) mmol/L Anion Gap 16.2 (10-20) mmol/L BUN 12 (7-18) mg/dL Creatinine 0.9 (0.55-1.02) mg/dL Est Cr Clr Drug Dosing TNP Estimated GFR (MDRD) > 60 Glucose 138 H (74-106) mg/dL Lactic Acid 2.7 H* 1.2 (0.4-2.0) mmol/L Calcium 9.0 (8.5-10.1) mg/dL Corrected Calcium 9.24 (8.5-10.1) mg/dL Phosphorus 1.6 L (2.6-4.7) mg/dL Magnesium 1.2 L (1.8-2.4) mg/dL Total Bilirubin 0.9 (0.2-1.0) mg/dL AST 19 (15-37) U/L ALT 26 (14-59) U/L Alkaline Phosphatase 74 (46-116) U/L C-Reactive Protein 10.9 H (<=0.9) mg/dL Total Protein 8.1 (6.4-8.2) g/dL Albumin 3.7 (3.4-5.0) g/dL Globulin 4.4 Albumin/Globulin Ratio 0.84 TSH, Ultra Sensitive 1.407 (0.358-3.74) uIU/mL Urine Color (YELLOW) Urine Appearance (CLEAR) Urine pH (5.0-8.0) Ur Specific Hadley Urine Protein (NEGATIVE) mg/dL Urine Glucose (UA) (NEGATIVE) mg/dL Urine Ketones (NEGATIVE) mg/dL Urine Occult Blood (NEGATIVE) Urine Nitrite (NEGATIVE) Urine Bilirubin (NEGATIVE) Urine Urobilinogen (0.2) EU/dL Ur Leukocyte Esterase (NEGATIVE) 12/18/18 12/18/18 Range/Units 07:20 07:20 WBC 7.7 (4.0-10.0) x10^3/uL RBC 3.65 L (4.00-5.50) x10^6/uL Hgb 10.4 L (12.0-16.0) g/dL Hct 33.1 (33.0-47.0) % MCV 90.7 (78.0-93.0) fL MCH 28.5 (26.0-32.0) pg MCHC 31.4 L (32.0-36.0) g/dL RDW Coeff of Jo Ann 14.0 (10.0-15.0) % Plt Count 169 (130-400) x10^3/uL Neut % (Auto) 92.7 H (50.0-80.0) % Lymph % (Auto) 3.9 L (25.0-50.0) % Concho % (Auto) 3.4 (2.0-11.0) % Eos % (Auto) 0.0 (0.0-4.0) % Baso % (Auto) 0.0 L (0.2-1.2) % Add Manual Diff Neutrophils % (Manual) (50-80) % Band Neutrophils % (0-6) % Lymphocytes % (Manual) (25-50) % Monocytes % (Manual) (2-11) % Metamyelocytes % (0) % Vacuolated Monocytes Toxic Granulation Platelet Estimate PT (10.0-12.8) SEC INR (2.0-3.5) Sodium 141 (136-145) mmol/L Potassium 3.8 (3.5-5.1) mmol/L Chloride 106 (98-107) mmol/L Carbon Dioxide 25 (21-32) mmol/L Anion Gap 13.8 (10-20) mmol/L BUN 9 (7-18) mg/dL Creatinine 0.8 (0.55-1.02) mg/dL Est Cr Clr Drug Dosing 96.18 Estimated GFR (MDRD) > 60 Glucose 123 H (74-106) mg/dL Lactic Acid (0.4-2.0) mmol/L Calcium 7.9 L (8.5-10.1) mg/dL Corrected Calcium (8.5-10.1) mg/dL Phosphorus (2.6-4.7) mg/dL Magnesium (1.8-2.4) mg/dL Total Bilirubin (0.2-1.0) mg/dL AST (15-37) U/L ALT (14-59) U/L Alkaline Phosphatase (46-116) U/L C-Reactive Protein (<=0.9) mg/dL Total Protein (6.4-8.2) g/dL Albumin (3.4-5.0) g/dL Globulin Albumin/Globulin Ratio TSH, Ultra Sensitive (0.358-3.74) uIU/mL Urine Color (YELLOW) Urine Appearance (CLEAR) Urine pH (5.0-8.0) Ur Specific Had[place] Urine Protein (NEGATIVE) mg/dL Urine Glucose (UA) (NEGATIVE) mg/dL Urine Ketones (NEGATIVE) mg/dL Urine Occult Blood (NEGATIVE) Urine Nitrite (NEGATIVE) Urine Bilirubin (NEGATIVE) Urine Urobilinogen (0.2) EU/dL Ur Leukocyte Esterase (NEGATIVE) [facility] Results - Last 24 hrs: Microbiology 12/17/18 17:51 Aerobic Blood Culture - Preliminary Blood - Venous Gram Negative Rods Anaerobic Blood Culture - Preliminary Gram Negative Rods 12/17/18 17:57 Anaerobic Blood Culture - Preliminary Blood - Venous - Lab Draw Gram Negative Rods Med Orders - Current: Current Medications Sodium Chloride (Normal Saline) 1,000 mls @ 125 mls/hr IV ASDIRECTED [facility] Last Admin: 12/18/18 13:06 Dose: 125 mls/hr Lactobacillus Rhamnosus (Culturelle) 1 cap PO BID [facility] Naproxen (Naproxen Sodium) 220 mg PO Q12HR PRN PRN Reason: Fever Last Admin: 12/18/18 13:06 Dose: 220 mg Ondansetron HCl (Zofran) 4 mg IVPUSH Q6H PRN PRN Reason: Nausea Last Admin: 12/18/18 01:22 Dose: 4 mg Sodium Chloride (Saline Flush) 10 ml FLUSH ASDIRECTED PRN PRN Reason: Keep Vein Open Last Admin: 12/18/18 10:53 Dose: 10 ml Discontinued Medications Ceftriaxone Sodium (Rocephin) 2 gm IVPUSH ONETIME ONE Stop: 12/18/18 09:15 Last Admin: 12/18/18 10:53 Dose: 2 gm Diatrizoate Meglum/Diatrizoate Sod (Gastrografin 37%) 10 ml PO Q30M [facility] Stop: 12/18/18 11:16 Last Admin: 12/18/18 12:06 Dose: 10 ml Sodium Chloride (Normal Saline) 1,000 mls @ 1,000 mls/hr IV .BOLUS ONE Stop: 12/17/18 18:27 Last Admin: 12/17/18 17:40 Dose: 1,000 mls/hr Potassium Chloride/Sodium Chloride (Normal Saline With 20 Meq Kcl) 1,000 mls @ 125 mls/hr IV ASDIRECTED SAMMY Last Admin: 12/18/18 04:21 Dose: 125 mls/hr Iopamidol (Isovue-300 (61%)) 100 ml IVPUSH ONETIME ONE Stop: 12/18/18 11:31 Last Admin: 12/18/18 12:42 Dose: 100 ml Ondansetron HCl (Zofran) 4 mg IVPUSH ONETIME ONE Stop: 12/17/18 17:29 Last Admin: 12/17/18 17:40 Dose: 4 mg - Exam General: Reports: Alert, Oriented HEENT: Reports: Pupils Equal, Pupils Reactive, EOMI Neck: Reports: Supple Lungs: Reports: Clear to Auscultation, Normal Respiratory Effort Cardiovascular: Reports: Regular Rate, Regular Rhythm GI/Abdominal Exam: Normal Bowel Sounds, Soft, Non-Tender, No Distention, No Abnormal Bruit Back Exam: Reports: Normal Inspection, Full Range of Motion Extremities: Normal Inspection, Normal Range of Motion, Non-Tender, No Pedal Edema, Normal Capillary Refill Skin: Reports: Warm, Dry, Intact Neurological: Reports: No New Focal Deficit Psy/Mental Status: Reports: Alert, Normal Affect, Normal Mood
[2018-12-18] MEDS ORDERED: Lactobacillus Rhamnosus GG (Probiotic) Cap PO SCH (20:00)
== END 2018-12-18 16:06 | disposition short-term general hospital (02) ==
LOC: VM.ED 17:10 → VM.MS 18:48
PROVIDERS: ADMIT Physician Assistant; ATTEND Physician Assistant
DX: E87.2 Acidosis (principal); R78.81 Bacteremia; R19.7 Diarrhea, unspecified; N12 Tubulo-interstitial nephritis, not specified as acute or chronic; Z79.899 Other long term (current) drug therapy; Z88.0 Allergy status to penicillin; Z88.6 Allergy status to analgesic agent
CPT/HCPCS: 36415; 74178; 80048; 80053; 81003; 83605; 83735; 84100; 84443; 85025; 85610; 86140; 87040; 87077; 87186; 96361; 96374; 96375; 96376; 99284-25; A9270-GY; G0378; J0696; J2405; J3480; J7030; Q9963; Q9967